=== PATIENT | female | born 1975 | race Caucasian/White ===

== ENCOUNTER 2019-11-06 21:34 | Emergency (ER) | payer MEDICAID, OTHER ==
[~2019-11-06] VITALS: Ht 167.6 cm; Wt 72.6 kg
[2019-11-06 21:41] VITALS: BP 133/72
--- NOTE | 2019-11-06 22:05 | NUR ---
DR MCNAIR AT BEDSIDE
--- NOTE | 2019-11-06 23:04 | NUR ---
Patient discharged to home in stable condition. Written and verbal after care instructions given. Patient verbalizes understanding of instruction.
== END 2019-11-06 23:05 | disposition home or self-care (01) ==
LOC: ER 21:34
DX: M54.12 Radiculopathy, cervical region (principal); M62.838 Other muscle spasm; M79.645 Pain in left finger(s); Z98.890 Other specified postprocedural states; W19.XXXA Unspecified fall, initial encounter; Y93.89 Activity, other specified; Y92.89 Other specified places as the place of occurrence of the external cause; Y99.8 Other external cause status
CPT/HCPCS: 70450-TC; 72125-TC

== ENCOUNTER 2020-08-23 01:49 | Emergency (ER) | payer MEDICAID ==
[~2020-08-23] VITALS: Ht 167.6 cm; Wt 73.5 kg
[2020-08-23 02:42] VITALS: BP 122/71
[2020-08-23] MEDS ORDERED: CLIN300C12 PO ×2 (03:08→03:10)
[2020-08-23] MEDS ORDERED: CLINDAMYCIN HCL 150 MG CAPSULE PO ONE ×2 (03:15→03:30)
== END 2020-08-23 03:20 | disposition home or self-care (01) ==
LOC: ER 01:51
DX: L03.116 Cellulitis of left lower limb (principal); L03.115 Cellulitis of right lower limb; L98.9 Disorder of the skin and subcutaneous tissue, unspecified; Z98.890 Other specified postprocedural states; Z88.2 Allergy status to sulfonamides; Z60.2 Problems related to living alone

== ENCOUNTER 2020-09-14 19:25 | Emergency (ER) | payer MEDICAID ==
[~2020-09-14] VITALS: Ht 167.6 cm; Wt 74.8 kg
[~2020-09-14 19:25] MED LIST: CLIN300C12 PO
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
[2020-09-14] MEDS ORDERED: KETOROLAC TROMETHAMINE 15 MG/ML VIAL ONE (20:25)
[2020-09-14] MEDS ORDERED: IV NS 0.9% 500 ML BAG IV ONE (20:30)
[2020-09-14] MEDS ORDERED: KETOROLAC TROMETHAMINE INJ 30 MG/ML VIAL IV ONE (20:30)
[2020-09-14 20:44] LABS: WHITE BLOOD COUNT (AUTO) 8.8 K/uL (4.3-11.0)
[2020-09-14 20:47] LABS: BASOPHILS # (AUTO) 0.1 K/uL (0.0-0.2); BASOPHILS % (AUTO) 0.6 % (0.0-2.0); HEMATOCRIT 30 % (33-45); HEMOGLOBIN 10.4 g/dL (11.5-14.8); LYMPHOCYTES # (AUTO) 2.5 K/uL (0.8-4.8); LYMPHOCYTES % (AUTO) 28.8 % (20.0-44.0); MEAN CORPUSCULAR HGB CONC 34 g/dl (31.0-36.0); MEAN CORPUSCULAR VOLUME 86 fL (82-100); MONOCYTES # (AUTO) 0.9 K/uL (0.1-1.30); NEUTROPHILS # (AUTO) 5.2 K/uL (1.8-8.9); NEUTROPHILS % (AUTO) 58.6 % (43.0-81.0); PLATELET COUNT (AUTO) 270 K/uL (150-450); RED BLOOD CELL COUNT(AUTO) 3.54 MIL/uL (4.0-5.2)
[2020-09-14 20:57] LABS: ALANINE AMINOTRANSFERASE 22 U/L (12-78); ALKALINE PHOSPHATASE 98 U/L (46-116); ASPARTATE AMINOTRANSFERASE 24 U/L (15-37); BILIRUBIN,DIRECT 0.1 mg/dL (0.0-0.2); BILIRUBIN,TOTAL 0.5 mg/dL (0.2-1.0); CALCIUM, SERUM 8.7 mg/dL (8.5-10.1); CARBON DIOXIDE 27 mmol/L (21-32); CHLORIDE 101 mmol/L (98-107); CREATININE 0.7 mg/dL (0.6-1.3); GLUCOSE 103 mg/dL (74-106); POTASSIUM 3.9 mmol/L (3.5-5.1); SODIUM SERUM 137 mmol/L (136-145); TOTAL PROTEIN, SERUM 8.4 g/dL (6.4-8.2); UREA NITROGEN, BLOOD 13 mg/dL (7-18)
--- NOTE | 2020-09-14 21:34 | NUR ---
pt signed waiver.
--- NOTE | 2020-09-14 22:23 | NUR ---
Patient is resting comfortably in bed with eyes closed. Easily aroused. VSS
[2020-09-14] MEDS ORDERED: CYCL5TAB PO (23:01)
[2020-09-14] MEDS ORDERED: AMOX500C2 PO (23:01)
[2020-09-14] MEDS ORDERED: AZIT250T13 PO (23:01)
[2020-09-14] MEDS ORDERED: NAPR500T6 PO (23:01)
--- NOTE | 2020-09-14 23:15 | NUR ---
Patient discharged to home in stable condition. Written and verbal after care instructions given. Patient verbalizes understanding of instruction. IV removed. Catheter intact and site benign. Pressure and 4x4 applied to site. No bleeding noted. Pt ambulatory with a steady gait
[2020-09-14 23:39] VITALS: BP 127/77
== END 2020-09-14 23:15 | disposition home or self-care (01) ==
LOC: ER 19:33
DX: S16.1XXA Strain of muscle, fascia and tendon at neck level, initial encounter (principal); V43.52XA Car driver injured in collision with other type car in traffic accident, initial encounter; Y92.410 Unspecified street and highway as the place of occurrence of the external cause; M50.10 Cervical disc disorder with radiculopathy, unspecified cervical region; J18.9 Pneumonia, unspecified organism; Z20.822 Contact with and (suspected) exposure to COVID-19; D64.9 Anemia, unspecified; I45.10 Unspecified right bundle-branch block; F17.290 Nicotine dependence, other tobacco product, uncomplicated; Z88.2 Allergy status to sulfonamides
CPT/HCPCS: 36415; 71045; 72050; 80048; 80076; 84484; 84703; 85025; 87426; 93005; 96361; 96374; 99285; 99406; C9803; J1885; J7040 ×2